=== PATIENT | female | born 1995 | race Caucasian/White ===

== ENCOUNTER 2023-10-27 08:10 | Emergency (ER) | payer OTHER ==
[~2023-10-27] VITALS: Ht 162.6 cm; Wt 56.7 kg
[2023-10-27] MEDS ORDERED: LORAZEPAM 1 MG TABLET ONE (08:53)
[2023-10-27] MEDS: LORAZEPAM 0.5 MG TABLET PO ONE (08:55)
[2023-10-27] MEDS ORDERED: DOCUSATE SODIUM 100 MG/10 ML LIQUID UDC ONE (09:00)
[2023-10-27] MEDS: DOCUSATE SODIUM 100 MG/10 ML LIQUID UDC OT ONE (09:02)
[2023-10-27] MEDS ORDERED: FLUO20CA36 PO (10:42)
[2023-10-27 10:50] VITALS: BP 129/71; TEMP 98.2; O2SAT 98
== END 2023-10-27 11:40 | disposition home or self-care (01) ==
LOC: ER 08:32
DX: H61.23 Impacted cerumen, bilateral (principal); F41.9 Anxiety disorder, unspecified; J45.909 Unspecified asthma, uncomplicated; Z79.899 Other long term (current) drug therapy
CPT/HCPCS: A4606; A4663